=== PATIENT | female | born 1985 | race Two or more races ===

== ENCOUNTER 2020-12-31 09:48 | Outpatient (CLI) | payer OTHER | END 2020-12-31 16:01 | disposition home or self-care (01) | LOC: MAMO-SONO 09:48 → SONOGRAMA 09:48 → MAMO-SONO 16:01 | DX: R92.8 Other abnormal and inconclusive findings on diagnostic imaging of breast (principal); N64.89 Other specified disorders of breast; Z12.31 Encounter for screening mammogram for malignant neoplasm of breast; Z80.8 Family history of malignant neoplasm of other organs or systems; N84.0 Polyp of corpus uteri ==

== ENCOUNTER 2021-09-08 08:57 | Outpatient (CLI) | payer OTHER | END 2021-09-08 09:05 | disposition home or self-care (01) | LOC: SONOGRAMA 08:57 | PROVIDERS: ATTEND Internal Medicine | DX: N97.9 Female infertility, unspecified (principal) ==

== ENCOUNTER → 2021-09-08 10:52 | Outpatient (CLI) | payer OTHER | END | disposition home or self-care (01) | LOC: LAB 10:52 | PROVIDERS: ATTEND Internal Medicine | DX: N97.9 Female infertility, unspecified (principal) ==